=== PATIENT | female | born 1955 | race Caucasian/White ===

== ENCOUNTER → 2017-06-19 | Outpatient (CLI) | payer BC ==
[~2017-06-19] MED LIST: ATIVAN1 MG PO; BENADRYL ALLERG25 M5 PO; DOXYCYCLINE HY100 M3 PO; KEFLEX500 MG PO; TYLENOL W/CODEI1 TA2 PO
== END | disposition home or self-care (01) ==
LOC: MAMMO 10:46
DX: Z12.31 Encounter for screening mammogram for malignant neoplasm of breast (principal)

== ENCOUNTER → 2017-07-31 | Outpatient (CLI) | payer BC | END | disposition home or self-care (01) | LOC: LAB 10:22 | DX: D72.819 Decreased white blood cell count, unspecified (principal); D69.49 Other primary thrombocytopenia; D64.9 Anemia, unspecified; R79.89 Other specified abnormal findings of blood chemistry; K76.0 Fatty (change of) liver, not elsewhere classified ==

== ENCOUNTER 2018-03-11 20:51 | Inpatient (IN) | payer MEDICARE, OTHER ==
[~2018-03-11] VITALS: Ht 167.6 cm; Wt 134.3 kg
--- NOTE | ~2018-03-11 | PR ---
[place], [place] PROGRESS NOTE NAME: PATRICIA PARISI [facility] #: [id number] UNIT #: [id number] ROOM: 421 DOCTOR: VÍCTOR BYRNE,JANUARY BIRTHDATE: [birth year] DOS: SUBJECTIVE: The patient is a 63-year-old morbidly obese female who is being followed for a right leg cellulitis. She also has a bacteremia. She had one set of her original two admitting sets. One set grew Staphylococcus epidermidis. They are labeled as being drawn from a Hep-Lock. Her other set from same date a few minutes earlier remained sterile. Repeat blood cultures from the 25th remained sterile. She remains on Ancef for her cellulitis. She states pain is a little better. Redness was a little better. She was able to get her compression hose on today. No nausea or vomiting. Stools are little loose. She has been afebrile. No rash. She is very anxious, has significant bilateral lower extremity chronic edema. Further review of systems is unremarkable. LABORATORY DATA: WBCs 2.8, platelets 55, BUN 8, creatinine 0.58. Cultures as reviewed above. PHYSICAL EXAMINATION: VITAL SIGNS: Show temperature 98.3, pulse 76, respirations 18, BP 155/72. GENERAL: A 63-year-old morbidly obese female in no acute distress. HEAD, EYES, EARS, NOSE AND THROAT: Normocephalic, no thrush. LUNGS: Clear to auscultation bilaterally. Respirations even and unlabored. HEART: Regular rhythm. No murmur appreciated. ABDOMEN: Soft, nondistended. EXTREMITIES: +3 edema bilateral lower extremities, wearing compression hose to knees. SKIN: Warm, dry, free of rashes. She has multiple ecchymotic areas to bilateral upper extremities. Hep-Lock, no phlebitis. ASSESSMENT: Right leg cellulitis, slowly improving on Ancef, coagulase negative staph bacteremia, almost certainly a contaminant. She had two bottles of the same set from admission, which have grown a Staph epidermidis. The other blood cultures drawn just prior to that are sterile, as are the repeats from yesterday, which were sterile. It is of note that positive set was drawn from the Hep-Lock. PLAN: We will continue the Ancef. If her cellulitis continues to improve, she could be transitioned over possibly to Keflex and 1000 mg q.i.d. tomorrow. No further blood cultures are necessary. I would continue to consider this a contaminant so long as no other blood cultures turn positive. Case discussed with Dr. Urszula Hernadez. JANUARY CATY RENEE [place], [place] PROGRESS NOTE NAME: PATRICIA PARISI UNIT #: [id number] ROOM: 421 DOCTOR: VÍCTOR BYRNE BIRTHDATE: [birth year] URSZULA HERNADEZ MD CM:PNTRANS [id number] VÍCTOR BYRNE 03/14/18 141 interface
--- NOTE | ~2018-03-11 | PR ---
[place], [place] PROGRESS NOTE NAME: PATRICIA PARISI UNIT #: [id number] ROOM: 421 DOCTOR: MARICARMEN ESPITIA,URSZULA Blackman BIRTHDATE: [birth year] DOS: 03/14/2018 ADDENDUM I agree with the above plans as described. We will follow the patient up clinically and adjust accordingly. URSZULA HERNADEZ MD CM:PNTRANS 51 00 URSZULA HERNADEZ MD 03/14/18 2100 interface
[2018-03-11 20:57] VITALS: BP 170/83
[2018-03-11 22:04] LABS: BASO % 0.4 % (0.0-1.0); EOS # 0.1 10*3/uL (0.0-0.4); EOS % 1.5 % (1.0-4.0); HEMATOCRIT 38.2 % (37.0-47.0); HEMOGLOBIN 12.9 g/dl (12.0-16.0); LYMPH # 0.4 10*3/uL (1.3-4.4); LYMPH % 9.7 % (27.0-41.0); MEAN CORPUSCULAR HGB 32.1 pg (27.0-31.0); MEAN CORPUSCULAR HGB CONC 33.8 g/dl (33.0-37.0); MEAN PLATELET VOLUME 11.6 fl (9.6-12.3); MONO # 0.4 10*3/uL (0.1-1.0); MONO % 9.2 % (3.0-9.0); NEUT # 3.6 10*3/uL (2.3-7.9); NEUT % 78.8 % (47.0-73.0); PLATELET COUNT AUTOMATED 58 10*3/uL (130-400); RED BLOOD COUNT 4.02 10*6/uL (4.10-5.10); RED CELL DISTRI WIDTH 13.6 % (0-14.5); WHITE BLOOD COUNT 4.6 10*3/uL (4.8-10.8)
[2018-03-11 22:16] LABS: ACT PARTIAL THROMBO TIME 28.3 SECONDS (20.8-31.5); INTERNATIONAL NORM RATIO 1.2 (2.0-3.5)
[2018-03-11 22:21] LABS: ALKALINE PHOSPHATASE 121 U/L (45-117); BUN 12 mg/dl (7-24); CHLORIDE 107 mmol/L (98-107); CREATININE 0.59 mg/dL (0.55-1.02); LIPASE 191 U/L (73-393); POTASSIUM 3.7 mmol/L (3.5-5.1); SGOT/AST 58 IU/L (3-35); SGPT/ALT 39 U/L (12-78); SODIUM 140 mmol/L (136-145); TOTAL PROTEIN 6.2 gm/dL (6.4-8.2)
[2018-03-11 22:22] LABS: TROPONIN I < 0.015 ng/ml (<0.045)
[2018-03-11 22:25] VITALS: BP 127/55
[2018-03-11 22:48] LABS: BILIRUBIN NEGATIVE (NEGATIVE); BLOOD NEGATIVE (NEGATIVE); CLARITY SL CLOUDY (CLEAR); COLOR YELLOW (YELLOW); GLUCOSE NEGATIVE (NEGATIVE); KETONE NEGATIVE (NEGATIVE); LEUKO ESTERASE NEGATIVE (NEGATIVE); NITRITE NEGATIVE (NEGATIVE); PH 7.5 (5.0-9.0)
[2018-03-12] VITALS (8 sets, daily range): BP systolic 103–149; BP diastolic 50–68
[2018-03-12] MEDS ORDERED: Synthroid,Lev100 MCG PO (01:50)
[2018-03-12] MEDS ORDERED: ATIVAN0.5 MG PO (01:50)
[2018-03-12 07:36] LABS: INTERNATIONAL NORM RATIO 1.3 (2.0-3.5)
[2018-03-12 07:42] LABS: HEMOGLOBIN 11.3 g/dl (12.0-16.0); MEAN CELL VOLUME 97.7 fl (81.0-99.0); MEAN CORPUSCULAR HGB 32.5 pg (27.0-31.0); MEAN CORPUSCULAR HGB CONC 33.2 g/dl (33.0-37.0); MEAN PLATELET VOLUME 11.9 fl (9.6-12.3); PLATELET COUNT AUTOMATED 45 10*3/uL (130-400); RED BLOOD COUNT 3.48 10*6/uL (4.10-5.10); WHITE BLOOD COUNT 3.1 10*3/uL (4.8-10.8)
[2018-03-12 07:46] LABS: ALBUMIN 2.7 gm/dl (3.1-4.5); BUN 10 mg/dl (7-24); CHLORIDE 112 mmol/L (98-107); CHOLESTEROL 145 mg/dL (<200); CREATININE 0.59 mg/dL (0.55-1.02); FREE T4 1.19 ng/dl (0.76-1.46); HDL CHOLESTEROL 55 mg/dl (40-60); LDL CHOLESTEROL 78 mg/dL (9-159); PHOSPHOROUS 3.5 mg/dL (2.5-4.9); POTASSIUM 3.6 mmol/L (3.5-5.1); SGOT/AST 47 IU/L (3-35); SGPT/ALT 35 U/L (12-78); SODIUM 144 mmol/L (136-145); TOTAL PROTEIN 5.5 gm/dL (6.4-8.2); TRIGLYCERIDES 62 mg/dl (<150); VLDL CHOLESTEROL 12 mg/dL (6-40)
[2018-03-12 07:50] LABS: ALKALINE PHOSPHATASE 98 U/L (45-117)
[2018-03-12 07:59] LABS: PLATELET SUFFICIENCY LOW (NORMAL); TOTAL CELLS COUNTED 100 #CELLS
[2018-03-12 09:19] LABS: VITAMIN D, 25-HYDROXY 16.2 ng/mL (30-100)
[2018-03-13] VITALS: BP 156/71
[2018-03-13 06:25] LABS: WHITE BLOOD COUNT 2.5 10*3/uL (4.8-10.8)
[2018-03-13 06:27] LABS: HEMATOCRIT 34.2 % (37.0-47.0); HEMOGLOBIN 11.3 g/dl (12.0-16.0); MEAN CELL VOLUME 96.9 fl (81.0-99.0); MEAN PLATELET VOLUME 11.3 fl (9.6-12.3); PLATELET COUNT AUTOMATED 46 10*3/uL (130-400); RED BLOOD COUNT 3.53 10*6/uL (4.10-5.10)
[2018-03-13 06:56] LABS: BUN 11 mg/dl (7-24); CHLORIDE 113 mmol/L (98-107); POTASSIUM 3.8 mmol/L (3.5-5.1); SODIUM 145 mmol/L (136-145)
[2018-03-13 07:53] LABS: ATYPICAL LYMPHS 1 % (0-0); BASOPHILS 1 % (0-1); PLATELET SUFFICIENCY LOW (NORMAL); TOTAL CELLS COUNTED 100 #CELLS
[2018-03-13 08:00] VITALS: BP 133/55
[2018-03-13 12:15] VITALS: BP 136/57
[2018-03-13 18:00] VITALS: BP 136/57
[2018-03-13 20:00] VITALS: BP 140/58
[2018-03-14] VITALS: BP 149/79
[2018-03-14 06:15] LABS: BASO % 1.1 % (0.0-1.0); EOS # 0.2 10*3/uL (0.0-0.4); EOS % 6.5 % (1.0-4.0); HEMATOCRIT 34.4 % (37.0-47.0); HEMOGLOBIN 11.4 g/dl (12.0-16.0); LYMPH # 1.2 10*3/uL (1.3-4.4); LYMPH % 43.4 % (27.0-41.0); MEAN CELL VOLUME 96.6 fl (81.0-99.0); MEAN CORPUSCULAR HGB CONC 33.1 g/dl (33.0-37.0); MEAN PLATELET VOLUME 12.1 fl (9.6-12.3); MONO # 0.3 10*3/uL (0.1-1.0); MONO % 9.7 % (3.0-9.0); NEUT # 1.1 10*3/uL (2.3-7.9); NEUT % 39.3 % (47.0-73.0); PLATELET COUNT AUTOMATED 55 10*3/uL (130-400); RED BLOOD COUNT 3.56 10*6/uL (4.10-5.10); RED CELL DISTRI WIDTH 13.8 % (0-14.5); WHITE BLOOD COUNT 2.8 10*3/uL (4.8-10.8)
[2018-03-14 06:31] LABS: BUN 8 mg/dl (7-24); CHLORIDE 111 mmol/L (98-107); CREATININE 0.58 mg/dL (0.55-1.02); POTASSIUM 3.8 mmol/L (3.5-5.1); SODIUM 146 mmol/L (136-145)
[2018-03-14 08:00] VITALS: BP 136/65
[2018-03-14 12:00] VITALS: BP 155/72
[2018-03-14 16:00] VITALS: BP 138/45; BP 148/48
[2018-03-14 20:00] VITALS: BP 131/50
[2018-03-15] VITALS: BP 116/50
[2018-03-15 06:12] LABS: EOS # 0.2 10*3/uL (0.0-0.4); EOS % 7.9 % (1.0-4.0); HEMATOCRIT 34.7 % (37.0-47.0); HEMOGLOBIN 11.4 g/dl (12.0-16.0); LYMPH # 1.2 10*3/uL (1.3-4.4); LYMPH % 38.7 % (27.0-41.0); MEAN CELL VOLUME 97.2 fl (81.0-99.0); MEAN CORPUSCULAR HGB 31.9 pg (27.0-31.0); MEAN CORPUSCULAR HGB CONC 32.9 g/dl (33.0-37.0); MEAN PLATELET VOLUME 11.7 fl (9.6-12.3); MONO # 0.3 10*3/uL (0.1-1.0); MONO % 10.9 % (3.0-9.0); NEUT # 1.2 10*3/uL (2.3-7.9); NEUT % 41.2 % (47.0-73.0); PLATELET COUNT AUTOMATED 67 10*3/uL (130-400); RED BLOOD COUNT 3.57 10*6/uL (4.10-5.10); RED CELL DISTRI WIDTH 14.1 % (0-14.5)
[2018-03-15 06:41] LABS: BUN 9 mg/dl (7-24); CHLORIDE 109 mmol/L (98-107); POTASSIUM 3.5 mmol/L (3.5-5.1); SODIUM 146 mmol/L (136-145)
[2018-03-15 08:00] VITALS: BP 135/72
[2018-03-15] MEDS ORDERED: LACTINEX 0.2 MG1 TAB PO (09:56)
[2018-03-15] MEDS ORDERED: VITAMIN D-32000 UNIT PO (09:56)
[2018-03-15] MEDS ORDERED: KEFLEX500 M1 PO ×2 (09:56→10:16)
[2018-03-15] MEDS ORDERED: LASIX20 MG PO (09:56)
[2018-03-15] MEDS ORDERED: K-TAB20 MEQ PO (09:58)
[2018-03-15 12:00] VITALS: BP 125/67
[2018-03-15 15:06] LABS: HEPATITIS B SURFACE AG Negative (Negative); HEPATITIS C VIRUS ANTIBODY <0.1 s/co (0.0-0.9)
== END 2018-03-15 14:15 | disposition home or self-care (01) | DRG 871 ==
LOC: ED 20:51 → 4E 03-12 00:07 → EDHOLD 03-12 00:07 → 4E 03-12 00:15
PROVIDERS: Family Medicine; Internal Medicine; Nurse Practitioner Adult Health; Physician Assistant
DX: A41.1 Sepsis due to other specified staphylococcus (principal); E43 Unspecified severe protein-calorie malnutrition; E66.01 Morbid (severe) obesity due to excess calories; D69.6 Thrombocytopenia, unspecified; Z68.42 Body mass index [BMI] 45.0-49.9, adult; L03.115 Cellulitis of right lower limb; I87.2 Venous insufficiency (chronic) (peripheral); R51 Headache; D72.810 Lymphocytopenia; E80.6 Other disorders of bilirubin metabolism; R74.0 Nonspecific elevation of levels of transaminase and lactic acid dehydrogenase [LDH]; R73.9 Hyperglycemia, unspecified; F41.9 Anxiety disorder, unspecified; E03.9 Hypothyroidism, unspecified; Z88.2 Allergy status to sulfonamides; Z90.49 Acquired absence of other specified parts of digestive tract; Z82.49 Family history of ischemic heart disease and other diseases of the circulatory system; Z82.5 Family history of asthma and other chronic lower respiratory diseases; Z79.899 Other long term (current) drug therapy

== ENCOUNTER 2019-06-12 11:15 | Emergency (ER) | payer MEDICARE, OTHER ==
[~2019-06-12] VITALS: Ht 167.6 cm; Wt 112.5 kg
--- NOTE | ~2019-06-12 | EKG ---
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
[~2019-06-12 11:15] MED LIST changes: +ATIVAN0.5 MG PO; +K-TAB20 MEQ PO; +KEFLEX500 M1 PO; +LACTINEX 0.2 MG1 TAB PO; +LASIX20 MG PO; +Synthroid,Lev100 MCG PO; +VITAMIN D-32000 UNIT PO
[2019-06-12 11:59] LABS: BASO % 0.5 % (0.0-1.0); EOS % 0.5 % (1.0-4.0); HEMOGLOBIN 14.8 g/dl (12.0-16.0); LYMPH # 0.5 10*3/uL (1.3-4.4); LYMPH % 7.8 % (27.0-41.0); MEAN CELL VOLUME 98.6 fl (81.0-99.0); MEAN CORPUSCULAR HGB 34.7 pg (27.0-31.0); MEAN CORPUSCULAR HGB CONC 35.2 g/dl (33.0-37.0); MEAN PLATELET VOLUME 9.5 fl (9.6-12.3); MONO # 0.2 10*3/uL (0.1-1.0); MONO % 3.5 % (3.0-9.0); NEUT # 5.5 10*3/uL (2.3-7.9); NEUT % 87.2 % (47.0-73.0); PLATELET COUNT AUTOMATED 92 10*3/uL (130-400); RED BLOOD COUNT 4.26 10*6/uL (4.10-5.10); RED CELL DISTRI WIDTH 14.9 % (0-14.5); WHITE BLOOD COUNT 6.3 10*3/uL (4.8-10.8)
[2019-06-12 12:12] LABS: ACT PARTIAL THROMBO TIME 30.4 SECONDS (20.0-32.1); INTERNATIONAL NORM RATIO 1.4 (2.0-3.5)
[2019-06-12 12:20] LABS: ALKALINE PHOSPHATASE 176 U/L (45-117); BUN 9 mg/dl (7-24); CHLORIDE 92 mmol/L (98-107); CREATININE 0.84 mg/dL (0.55-1.02); POTASSIUM 4.5 mmol/L (3.5-5.1); SGOT/AST 83 IU/L (3-35); SGPT/ALT 39 U/L (12-78); SODIUM 126 mmol/L (136-145)
[2019-06-12 12:21] LABS: TROPONIN I < 0.015 ng/ml (<0.045)
[2019-06-12 14:38] LABS: BODY FLUID WBC 6784 /uL
[2019-06-12 15:26] LABS: BF LYMPHOCYTES 2 %; BF MACROPHAGES 5 %; BF NEUTROPHILS 93 %
[2019-06-12 16:47] LABS: BILIRUBIN NEGATIVE (NEGATIVE); BLOOD TRACE-INTACT (NEGATIVE); CLARITY CLEAR (CLEAR); COLOR YELLOW (YELLOW); GLUCOSE NEGATIVE (NEGATIVE); KETONE NEGATIVE (NEGATIVE); LEUKO ESTERASE NEGATIVE (NEGATIVE); NITRITE NEGATIVE (NEGATIVE); PH 5.5 (5.0-9.0); SPECIFIC GRAVITY 1.025 (1.005-1.030)
[2019-06-12 16:58] LABS: BACTERIA TRACE; EPITHELIAL CELLS 0-2; RBC 0-2 rbc/hpf (0-2); WBC 0-2 wbc/hpf (0-5)
== END 2019-06-12 18:00 | disposition short-term general hospital (02) ==
LOC: ED 11:15
PROVIDERS: Emergency Medicine
DX: A41.9 Sepsis, unspecified organism (principal); K65.2 Spontaneous bacterial peritonitis; R65.21 Severe sepsis with septic shock; R77.8 Other specified abnormalities of plasma proteins; E03.9 Hypothyroidism, unspecified; E66.01 Morbid (severe) obesity due to excess calories; Z88.2 Allergy status to sulfonamides; Z79.899 Other long term (current) drug therapy; Z87.19 Personal history of other diseases of the digestive system; Z68.42 Body mass index [BMI] 45.0-49.9, adult

== ENCOUNTER 2019-10-25 20:14 | Emergency (ER) | payer MEDICARE, OTHER ==
[~2019-10-25] VITALS: Ht 167.6 cm; Wt 120.2 kg
[2019-10-25 21:25] LABS: BASO # 0.1 10*3/uL (0.0-0.1); BASO % 1.8 % (0.0-1.0); EOS # 0.4 10*3/uL (0.0-0.4); EOS % 7.5 % (1.0-4.0); HEMATOCRIT 28.2 % (37.0-47.0); HEMOGLOBIN 9.8 g/dl (12.0-16.0); LYMPH # 0.7 10*3/uL (1.3-4.4); LYMPH % 13.8 % (27.0-41.0); MEAN CELL VOLUME 103.7 fl (81.0-99.0); MEAN CORPUSCULAR HGB CONC 34.8 g/dl (33.0-37.0); MEAN PLATELET VOLUME 9.1 fl (9.6-12.3); MONO # 0.8 10*3/uL (0.1-1.0); MONO % 16.1 % (3.0-9.0); NEUT # 3.1 10*3/uL (2.3-7.9); NEUT % 60.4 % (47.0-73.0); PLATELET COUNT AUTOMATED 125 10*3/uL (130-400); RED BLOOD COUNT 2.72 10*6/uL (4.10-5.10); RED CELL DISTRI WIDTH 14.6 % (0-14.5); WHITE BLOOD COUNT 5.1 10*3/uL (4.8-10.8)
[2019-10-25 21:41] LABS: ALBUMIN 3.1 gm/dl (3.1-4.5); CREATININE 1.47 mg/dL (0.55-1.02); POTASSIUM 5.6 mmol/L (3.5-5.1); TOTAL PROTEIN 5.7 gm/dL (6.4-8.2)
== END 2019-10-25 22:25 | disposition home or self-care (01) ==
LOC: ED 20:14
PROVIDERS: Emergency Medicine
DX: E87.5 Hyperkalemia (principal); E03.9 Hypothyroidism, unspecified; E66.01 Morbid (severe) obesity due to excess calories; Z88.2 Allergy status to sulfonamides; Z79.899 Other long term (current) drug therapy; Z68.42 Body mass index [BMI] 45.0-49.9, adult

== ENCOUNTER 2021-03-12 18:40 | Emergency (ER) | payer MEDICARE, OTHER ==
[~2021-03-12] VITALS: Ht 167.6 cm; Wt 87.1 kg
[2021-03-12 19:32] LABS: BASO % 0.5 % (0.0-1.0); EOS # 0.1 10*3/uL (0.0-0.4); EOS % 1.1 % (1.0-4.0); HEMATOCRIT 33.9 % (37.0-47.0); LYMPH # 0.9 10*3/uL (1.3-4.4); LYMPH % 14.1 % (27.0-41.0); MEAN CELL VOLUME 91.9 fl (81.0-99.0); MEAN CORPUSCULAR HGB 31.7 pg (27.0-31.0); MEAN CORPUSCULAR HGB CONC 34.5 g/dl (33.0-37.0); MEAN PLATELET VOLUME 9.8 fl (9.6-12.3); MONO # 0.3 10*3/uL (0.1-1.0); MONO % 4.6 % (3.0-9.0); NEUT # 5.2 10*3/uL (2.3-7.9); NEUT % 79.4 % (47.0-73.0); PLATELET COUNT AUTOMATED 126 10*3/uL (130-400); RED BLOOD COUNT 3.69 10*6/uL (4.10-5.10); RED CELL DISTRI WIDTH 13.2 % (0-14.5); WHITE BLOOD COUNT 6.5 10*3/uL (4.8-10.8)
[2021-03-12 19:43] LABS: ALBUMIN 3.5 gm/dl (3.1-4.5); CREATININE 1.18 mg/dL (0.55-1.02); POTASSIUM 4.4 mmol/L (3.5-5.1); TOTAL PROTEIN 7.4 gm/dL (6.4-8.2)
[2021-03-12 19:56] LABS: BILIRUBIN Negative (Negative); BLOOD Trace-Lysed (Negative); CLARITY Clear (Clear); COLOR Yellow (Yellow); GLUCOSE Negative (Negative); KETONE Negative (Negative); LEUKO ESTERASE Trace (Negative); NITRITE Negative (Negative); SPECIFIC GRAVITY 1.015 (1.001-1.030)
[2021-03-12 20:06] LABS: BACTERIA 1+; EPITHELIAL CELLS 21-30; WBC 16-20 wbc/hpf (0-5)
[2021-03-12 20:07] LABS: RBC 0-2 rbc/hpf (0-2)
[2021-03-12] MEDS ORDERED: OXAYDO5 MG PO (21:34)
[2021-03-12] MEDS ORDERED: CEFUROXIME AXE500 MG PO (21:34)
== END 2021-03-12 22:43 | disposition home or self-care (01) ==
LOC: ED 18:40
PROVIDERS: Physician Assistant
DX: N39.0 Urinary tract infection, site not specified (principal); Z88.2 Allergy status to sulfonamides; Z88.8 Allergy status to other drugs, medicaments and biological substances; Z79.899 Other long term (current) drug therapy; Z90.49 Acquired absence of other specified parts of digestive tract; Z98.890 Other specified postprocedural states

== ENCOUNTER 2022-06-24 15:29 | Emergency (ER) | payer MEDICARE, OTHER ==
[~2022-06-24] VITALS: Ht 167.6 cm; Wt 104.3 kg
[~2022-06-24 15:29] MED LIST changes: +CEFUROXIME AXE500 MG PO; +OXAYDO5 MG PO
[2022-06-24 16:22] LABS: BASO % 0.6 % (0.0-1.0); EOS # 0.1 10*3/uL (0.0-0.4); EOS % 1.7 % (1.0-4.0); HEMATOCRIT 40.1 % (37.0-47.0); LYMPH # 1.2 10*3/uL (1.3-4.4); LYMPH % 16.9 % (27.0-41.0); MEAN CELL VOLUME 95.7 fl (81.0-99.0); MEAN CORPUSCULAR HGB 33.4 pg (27.0-31.0); MEAN CORPUSCULAR HGB CONC 34.9 g/dl (33.0-37.0); MEAN PLATELET VOLUME 10.3 fl (9.6-12.3); MONO # 0.3 10*3/uL (0.1-1.0); MONO % 4.1 % (3.0-9.0); NEUT # 5.4 10*3/uL (2.3-7.9); NEUT % 76.1 % (47.0-73.0); PLATELET COUNT AUTOMATED 143 10*3/uL (130-400); RED BLOOD COUNT 4.19 10*6/uL (4.10-5.10); RED CELL DISTRI WIDTH 13.2 % (0-14.5)
[2022-06-24 16:32] LABS: CREATININE 1.17 mg/dL (0.55-1.02); POTASSIUM 4.6 mmol/L (3.5-5.1); TOTAL PROTEIN 6.9 gm/dL (6.4-8.2)
[2022-06-24] MEDS ORDERED: SINGULAIR10 M1 PO (18:06)
[2022-06-24] MEDS ORDERED: ALLOPURINOL300 MG PO (18:07)
[2022-06-24] MEDS ORDERED: DULOXETINE HCL30 MG PO (18:08)
[2022-06-24] MEDS ORDERED: NALTREXONE HCL50 MG PO (18:09)
== END 2022-06-24 20:29 | disposition home or self-care (01) ==
LOC: ED 15:29
PROVIDERS: Nurse Practitioner Family
DX: K56.609 Unspecified intestinal obstruction, unspecified as to partial versus complete obstruction (principal); Z20.822 Contact with and (suspected) exposure to COVID-19; Z94.4 Liver transplant status

== ENCOUNTER 2025-04-08 13:36 | Emergency (ER) | payer MEDICARE, OTHER ==
[~2025-04-08] VITALS: Ht 170.1 cm; Wt 117.9 kg
[~2025-04-08 13:36] MED LIST changes: +ALLOPURINOL300 MG PO; +DULOXETINE HCL30 MG PO; +NALTREXONE HCL50 MG PO; +SINGULAIR10 M1 PO
[2025-04-08] MEDS ORDERED: traMADol Hydrochloride 50 MG TAB PO ONE (16:55)
[2025-04-08] MEDS ORDERED: CEPHALEXIN500 M1 PO (17:57)
[2025-04-08] MEDS ORDERED: TRAMADOL HCL50 MG PO (18:03)
== END 2025-04-08 18:06 | disposition home or self-care (01) ==
LOC: ED 13:36
DX: S81.011A Laceration without foreign body, right knee, initial encounter (principal); Z79.899 Other long term (current) drug therapy; Z88.2 Allergy status to sulfonamides; Z90.49 Acquired absence of other specified parts of digestive tract; Z98.890 Other specified postprocedural states; W01.0XXA Fall on same level from slipping, tripping and stumbling without subsequent striking against object, initial encounter; Y93.89 Activity, other specified; Y92.89 Other specified places as the place of occurrence of the external cause; Y99.8 Other external cause status